=== PATIENT | female | born 1985 | race Caucasian/White ===

== ENCOUNTER 2017-08-12 00:38 | Emergency (ER) | payer MEDICAID ==
[~2017-08-12] VITALS: Ht 167.6 cm; Wt 61.2 kg
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
--- NOTE | 2017-08-12 01:53 | NUR ---
ROMEO AT BEDSIDE
[2017-08-12 03:05] VITALS: BP 129/81
== END 2017-08-12 03:05 | disposition home or self-care (01) ==
LOC: ER 00:41
DX: O20.0 Threatened abortion (principal); D64.9 Anemia, unspecified
CPT/HCPCS: 36415; 76856-TC; 84702-TC; A4606; Z7610